=== PATIENT | male | born 1980 | race Caucasian/White ===

== ENCOUNTER 2024-07-27 03:52 | Emergency (ER) | payer MEDICAID ==
[~2024-07-27] VITALS: Ht 177.8 cm; Wt 88.0 kg
[2024-07-27 03:54] VITALS: O2SAT 98
[2024-07-27 03:59] VITALS: BP 142/85; PULSE 64; RESP 16; O2SAT 98
[2024-07-27 05:13] LABS: BASOPHILS % 0.2 % (0.0-2.0); DIFFERENTIAL COMMENT 0; EOSINOPHILS % 0.3 % (0.0-5.0); HEMATOCRIT. 46.2 % (42.0-52.0); HEMOGLOBIN. 15.5 g/dL (14.0-18.0); LYMPHOCYTES % 15.7 % (20.0-50.0); MEAN CORPUSCULAR HEMOGLOBIN 31.7 pg (28.0-32.0); MEAN CORPUSCULAR HGB CONC 33.4 g/dL (31.0-37.0); MONOCYTES % 3.3 % (2.0-8.0); NEUTROPHILS % 80.5 % (40.0-76.0); PLATELET 140 x1000/uL (130-400); RED BLOOD CELL COUNT 4.87 mill/uL (4.7-6.1); RED CELL DISTRIBUTION WIDTH 13.5 % (11.6-14.6); WHITE BLOOD COUNT 13.9 x1000/uL (4.5-11.0)
[2024-07-27 05:18] LABS: CARBON DIOXIDE 25 mEq/L (21-32); CHLORIDE 108 mEq/L (98-107); SODIUM 139 mEq/L (136-145)
[2024-07-27 05:24] LABS: GLUCOSE 156 mg/dL (70-105); UREA NITROGEN BLOOD 12 mg/dL (9-23)
[2024-07-27 05:25] LABS: ALANINE AMINOTRANSFERASE 27 IU/L (10-49)
[2024-07-27 05:26] LABS: ALBUMIN 4.2 g/dL (3.2-4.8); ASPARTATE AMINOTRANSFERASE 16 IU/L (<34); BILIRUBIN DIRECT 0.1 mg/dL (<=3.0); BILIRUBIN TOTAL 0.5 mg/dL (0.1-1.0); PROTEIN TOTAL 6.9 g/dL (6.0-8.3)
[2024-07-27 05:50] LABS: INR 0.9; PROTHROMBIN TIME 10.4 sec (9.6-11.0)
[2024-07-27 06:50] VITALS: TEMP 98.2
[2024-07-27] MEDS: ONDANSETRON 4MG ODT PO STA (06:50)
[2024-07-27] MEDS: ACETAMINOPHEN 325MG TABLET PO STA (06:50)
[2024-07-27] MEDS: MAGNESIUM/ALUMINUM HYDROXIDE/SIMETHICONE 30ML UDC PO STA (06:50)
[2024-07-27] MEDS ORDERED: DICYCLOMINE 10 MG/5 ML ORAL SYR PO STA (06:50)
[2024-07-27] MEDS: DICYCLOMINE HCL 10MG CAPSULE PO NR (07:09)
[2024-07-27] MEDS ORDERED: TOPUD PO (07:47)
[2024-07-27] MEDS ORDERED: OMEP20TA23 PO (07:47)
[2024-07-27 08:07] LABS: CLARITY URINE CLEAR (CLEAR); COLOR URINE YELLOW (YELLOW); GLUCOSE URINE NEGATIVE (NEGATIVE); KETONES URINE NEGATIVE (NEGATIVE); LEUKOCYTE ESTERASE URINE NEGATIVE (NEGATIVE); NITRITE URINE NEGATIVE (NEGATIVE); OCCULT BLOOD URINE NEGATIVE (NEGATIVE); PH URINE 5.5 (4.5-8.0); PROTEIN URINE NEGATIVE (NEGATIVE); SPECIFIC GRAVITY URINE 1.028 (1.005-1.030)
[2024-07-27] MEDS ORDERED: SUCRALFATE 1G TABLET PO SCH (09:00)
== END 2024-07-27 08:27 | disposition home or self-care (01) ==
LOC: ER 03:52
DX: R10.84 Generalized abdominal pain (principal); Z79.899 Other long term (current) drug therapy
CPT/HCPCS: 99284; 80076; 80048; 81003; 83690; 85025; 85610; 36415; Q0162